=== PATIENT | female | born 1950 | race Caucasian/White ===

== ENCOUNTER 2017-08-18 18:54 | Emergency (ER) | payer MEDICARE, OTHER, SELFPAY ==
[2017-08-18 19:07] VITALS: BP 128/93; PULSE 90; RESP 14; TEMP 36.7; O2SAT 98; BMI 27.9
--- NOTE | 2017-08-18 20:18 | ED.UPPEXIN ---
HPI - Extremity Injury (Upper) <BRENDA Mendez - Last Filed: 08/18/17 22:22> General Chief Complaint: Extremity Injury, Upper Stated Complaint: LEFT ARM IS BROKEN PER PT Time Seen by Provider: 08/18/17 19:15 History of Present Illness HPI narrative: 66-year-old female here for complaint of pain into left upper arm. She was seen at [facility] earlier today and had x-rays completed which shows a humeral neck fracture. She was placed in a sling for comfort and support and was instructed to follow up with Orthopedics on Sunday. She is here to have her arm fix today as she was under the impression that we had Orthopedics here in the emergency room 30/10. She denies any other injuries. She reports that she needs better pain control than just the Motrin that she has received. She was able to ambulate into the emergency room. No head injury no loss of consciousness. Related Data Previous Rx's Medication Instructions Recorded hydrocodone-acetaminophen [[place]] 1 tab PO Q4-6H PRN #10 tab 08/18/17 Allergies Allergy/AdvReac Type Severity Reaction Status Date / Time Sulfa (Sulfonamide Allergy Intermediate Hives Verified 08/18/17 19:11 Antibiotics) Review of Systems <BRENDA Mendez - Last Filed: 08/18/17 22:22> Constitutional Denies chills, Denies fever(s), Denies lethargy and Denies weakness Eyes Denies change in vision, Denies eye discharge, Denies irritation and Denies loss of vision ENT Ears, Nose, Mouth, and Throat: Denies change in voice, Denies neck pain and Denies sore throat Cardiovascular Denies chest pain, Denies irregular heart rhythm, Denies lightheadedness, Denies palpitations, Denies dyspnea, Denies dyspnea on exertion and Denies orthopnea Respiratory Denies cough, Denies dyspnea, Denies dyspnea on exertion and Denies wheezing Gastrointestinal Gastrointestinal: Denies abdominal pain, Denies change in bowel habits, Denies diarrhea, Denies nausea and Denies vomiting Genitourinary Denies hematuria, Denies flank pain, Denies urinary incontinence and Denies urinary urgency Musculoskeletal Denies neck pain Comments: Left upper arm pain Integumentary/Breasts Denies pruritus, Denies erythema, Denies rash and Denies wounds Neurologic Denies loss of vision and Denies weakness Endocrine Denies palpitations Allergic/Immunologic Denies wheezing Exam <BRENDA Mendez - Last Filed: 08/18/17 22:22> Const General: cooperative and well developed Nutritional Appearance: well nourished Orientation: alert, awake, oriented x3 and not confused Eyes Pupils: PERRL EOM: EOM intact bilaterally Resp Effort & Inspection: normal respiratory effort, able to speak in complete sentences, no respiratory distress and no use of accessory muscles Auscultation: clear to auscultation bilaterally, no rales, no rhonchi and no wheezes Cardio Rate: regular rate Rhythm: regular rhythm Heart Sounds: no click, no gallops, no murmurs and no rubs Pulses: normal peripheral pulses GI Inspection: non-distended Palpation: soft, no hepatosplenomegaly, No guarding, No pulsatile mass and No tender Auscultation: normal bowel sounds Skin General: no rashes or lesions noted, No jaundice and No petechiae Extrem Other: Slight swelling to left proximal humeral . No ecchymosis. No deformities. Distal sensation is intact. Distal pulses are intact. Distal range of motion is intact. MDM - Extremity Injury (Upper) <BRENDA Mendez - Last Filed: 08/18/17 22:22> [facility] Narrative Medical decision making narrative: Records were obtained from [facility] which gives radiological read which indicates mildly comminuted angulated impacted humeral neck fracture. She is placed in over the shoulder premade humeral head fracture splint. [id number] Tylenol Motrin as needed for any discomfort. [place] is prescribed for any breakthrough pain. Ice to area to help with any swelling. Follow up with Orthopedics on Sunday as scheduled. For any worsening symptoms return to the emergency room. Discharge Plan Departure Patient Disposition: Home, Self-Care Clinical Impression: Closed fracture of head of right humerus Discharge Date/Time: 08/18/17 21:36 Interventions: ED Discharge Assessment Last Done: 08/18/17 21:34 Instructions: DI for Humeral Fracture Activity Restrictions/Additional Instructions: X-ray from [facility] shows to have a humeral neck fracture. You have been placed in a splint for comfort and support use as directed. [id number] Tylenol or Motrin as needed for any discomfort. Follow up with Orthopedics as scheduled. Small amount of [place] is prescribed for breakthrough pain use as directed. Ice to area 20 min at a time a few times a day over the next few days to help with any swelling. For any worsening symptoms return to the emergency room. Follow up with primary care provider. Prescriptions: New hydrocodone-acetaminophen [[place]] 5-325 mg tablet 1 tab PO Q4-6H PRN (Reason: pain) Qty: 10 RF: 0 Referrals: Therese Gilman PA-C [Primary Care Provider] - Mirza Moss MD [Physician] - <Feliciano Fierro DO - Last Filed: 08/19/17 00:34> Cosign ED Attending Howard Attestation: I was available for consultation during this patient's emergency department encounter
--- NOTE | 2017-08-18 20:21 | ED_ITS ---
HPI - Extremity Injury (Upper) <BRENDA Mendez - Last Filed: 08/18/17 22:22> General Chief Complaint: Extremity Injury, Upper Stated Complaint: LEFT ARM IS BROKEN PER PT Time Seen by Provider: 08/18/17 19:15 History of Present Illness HPI narrative: 66-year-old female here for complaint of pain into left upper arm. She was seen at [facility] earlier today and had x-rays completed which shows a humeral neck fracture. She was placed in a sling for comfort and support and was instructed to follow up with Orthopedics on Sunday. She is here to have her arm fix today as she was under the impression that we had Orthopedics here in the emergency room 30/10. She denies any other injuries. She reports that she needs better pain control than just the Motrin that she has received. She was able to ambulate into the emergency room. No head injury no loss of consciousness. Related Data Previous Rx's Medication Instructions Recorded hydrocodone-acetaminophen [[place]] 1 tab PO Q4-6H PRN #10 tab 08/18/17 Allergies Allergy/AdvReac Type Severity Reaction Status Date / Time Sulfa (Sulfonamide Allergy Intermediate Hives Verified 08/18/17 19:11 Antibiotics) Review of Systems <BRENDA Mendez - Last Filed: 08/18/17 22:22> Constitutional Denies chills, Denies fever(s), Denies lethargy and Denies weakness Eyes Denies change in vision, Denies eye discharge, Denies irritation and Denies loss of vision ENT Ears, Nose, Mouth, and Throat: Denies change in voice, Denies neck pain and Denies sore throat Cardiovascular Denies chest pain, Denies irregular heart rhythm, Denies lightheadedness, Denies palpitations, Denies dyspnea, Denies dyspnea on exertion and Denies orthopnea Respiratory Denies cough, Denies dyspnea, Denies dyspnea on exertion and Denies wheezing Gastrointestinal Gastrointestinal: Denies abdominal pain, Denies change in bowel habits, Denies diarrhea, Denies nausea and Denies vomiting Genitourinary Denies hematuria, Denies flank pain, Denies urinary incontinence and Denies urinary urgency Musculoskeletal Denies neck pain Comments: Left upper arm pain Integumentary/Breasts Denies pruritus, Denies erythema, Denies rash and Denies wounds Neurologic Denies loss of vision and Denies weakness Endocrine Denies palpitations Allergic/Immunologic Denies wheezing Exam <BRENDA Mendez - Last Filed: 08/18/17 22:22> Const General: cooperative and well developed Nutritional Appearance: well nourished Orientation: alert, awake, oriented x3 and not confused Eyes Pupils: PERRL EOM: EOM intact bilaterally Resp Effort & Inspection: normal respiratory effort, able to speak in complete sentences, no respiratory distress and no use of accessory muscles Auscultation: clear to auscultation bilaterally, no rales, no rhonchi and no wheezes Cardio Rate: regular rate Rhythm: regular rhythm Heart Sounds: no click, no gallops, no murmurs and no rubs Pulses: normal peripheral pulses GI Inspection: non-distended Palpation: soft, no hepatosplenomegaly, No guarding, No pulsatile mass and No tender Auscultation: normal bowel sounds Skin General: no rashes or lesions noted, No jaundice and No petechiae Extrem Other: Slight swelling to left proximal humeral . No ecchymosis. No deformities. Distal sensation is intact. Distal pulses are intact. Distal range of motion is intact. MDM - Extremity Injury (Upper) <BRENDA Mendez - Last Filed: 08/18/17 22:22> [facility] Narrative Medical decision making narrative: Records were obtained from [facility] which gives radiological read which indicates mildly comminuted angulated impacted humeral neck fracture. She is placed in over the shoulder premade humeral head fracture splint. [id number]-[id number] Tylenol Motrin as needed for any discomfort. [place] is prescribed for any breakthrough pain. Ice to area to help with any swelling. Follow up with Orthopedics on Sunday as scheduled. For any worsening symptoms return to the emergency room. Discharge Plan Departure Patient Disposition: Home, Self-Care Clinical Impression: Closed fracture of head of right humerus Discharge Date/Time: 08/18/17 21:36 Interventions: ED Discharge Assessment Last Done: 08/18/17 21:34 Instructions: DI for Humeral Fracture Activity Restrictions/Additional Instructions: X-ray from [facility] shows to have a humeral neck fracture. You have been placed in a splint for comfort and support use as directed. Over-the- counter Tylenol or Motrin as needed for any discomfort. Follow up with Orthopedics as scheduled. Small amount of [place] is prescribed for breakthrough pain use as directed. Ice to area 20 min at a time a few times a day over the next few days to help with any swelling. For any worsening symptoms return to the emergency room. Follow up with primary care provider. Prescriptions: New hydrocodone-acetaminophen [[place]] 5-325 mg tablet 1 tab PO Q4-6H PRN (Reason: pain) Qty: 10 RF: 0 Referrals: Therese Gilman PA-C [Primary Care Provider] - Mirza Moss MD [Physician] - <Feliciano Fierro DO - Last Filed: 08/19/17 00:34> Cosign ED Attending Howard Attestation: I was available for consultation during this patient's emergency department encounter
[2017-08-18] MEDS: HYDROCODONE/ACET 5/325 TABLET 1 TAB PO (20:48)
[2017-08-18 20:51] VITALS: BP 115/80; PULSE 84; RESP 15; O2SAT 99
[2017-08-18] MEDS: HYDROCODONE/ACET 5/325 PREPACK 1 BOTTLE MISC (21:17)
--- NOTE | 2017-08-18 21:37 | PC.NURSE ---
norco pp and norco script given to patient at discharge.
--- NOTE | 2017-08-18 21:41 | PC.NURSE ---
left humoral head cuff applied. pos cms.
== END 2017-08-18 21:36 | disposition home or self-care (01) ==
PROVIDERS: Emergency Provider Nurse Practitioner Family; Family Provider Physician Assistant; PCP Physician Assistant
DX: S42.291D Other displaced fracture of upper end of right humerus, subsequent encounter for fracture with routine healing (principal)
CPT/HCPCS: 29240; 99282

== ENCOUNTER → 2017-08-27 10:07 | Outpatient (CLI) | payer MEDICARE, OTHER, SELFPAY ==
--- NOTE | 2017-08-27 | DI.CT.S_ITS ---
PROCEDURE: CT UE LT WO CON INDICATIONS: 66 year-old female with left shoulder fracture after fall. TECHNIQUE: Noncontrast 1-1.5 mm thick sections acquired from the acromioclavicular joint to the inferior scapula, with coronal and sagittal reformatting. COMPARISON: None available. FINDINGS: Image quality: Excellent. Bones: A comminuted impacted fracture involves the left humeral neck and greater tuberosity. Coronal reformatted images demonstrate up to 1.4 cm superior impaction of the humeral shaft, as well as up to 1.2 cm displacement of the greater tuberosity fracture components. There is inferior subluxation of the humeral head with respect to the glenoid fossa, likely reflecting sequelae of intra-articular hemorrhagic products. No suspicious lytic or blastic bony lesions. There is mild acromioclavicular joint degeneration. Soft tissues: No hematoma formation. Visualized left upper lung appears clear. No axillary adenopathy by CT size criteria. IMPRESSION: Findings consistent with Neer 3-part comminuted fracture involving the left humeral neck and greater tuberosity. Dictated by: Antione London M.D. on 08/27/2017 at 13:22 Approved by: Antione London M.D. on 08/27/2017 at 13:30
== END ==
PROVIDERS: Family Provider Physician Assistant; PCP Physician Assistant; Visit Provider Orthopaedic Surgery
DX: S42.252A Displaced fracture of greater tuberosity of left humerus, initial encounter for closed fracture (principal)
CPT/HCPCS: 73200

== ENCOUNTER → 2017-09-04 10:18 | Outpatient (CLI) | payer MEDICARE, OTHER, SELFPAY ==
[2017-09-04 11:10] LABS: Add Manual Diff / Slide Review NO; Basophils Percent Auto 1.1 % (0-2); Eosinophils Percent Auto 1.4 % (2-4); Hematocrit 36.5 % (36-46); Hemoglobin 12.5 g/dL (12.0-16.0); Lymphocytes Percent Auto 31.3 % (25-40); Mean Corpuscular HGB Conc 34.2 % (30-36); Mean Corpuscular Hemoglobin 29.8 PG (26-34); Mean Corpuscular Volume 87.3 fL (80-100); Monocytes Percent Auto 5.9 % (3-14); Neutrophils Absolute Auto 4700 /uL (3000-5900); Neutrophils Percent Auto 60.3 % (50-75); Platelet Count 248 X10^3/uL (150-400); Red Blood Cell Count 4.18 X10^6/uL (4.0-5.2); White Blood Cell Count 7.8 X10^3/uL (4.5-11.0)
[2017-09-04 11:50] LABS: Carbon Dioxide 27 mmol/L (22-32); Chloride 103 mmol/L (98-107); HEMOLYSIS < 15 (0-50); Potassium 4.6 mmol/L (3.4-5.1); Sodium 140 mmol/L (137-145)
== END ==
PROVIDERS: Family Provider Physician Assistant; PCP Physician Assistant; Visit Provider Orthopaedic Surgery
DX: Z01.818 Encounter for other preprocedural examination (principal); Z01.812 Encounter for preprocedural laboratory examination
CPT/HCPCS: 36415; 80051; 85025; 93005

== ENCOUNTER 2017-09-06 12:36 | Day surgery (SDC) | payer MEDICARE, OTHER, SELFPAY ==
[2017-09-04 13:55] VITALS: BMI 31.4
[2017-09-06] VITALS (11 sets, daily range): BP systolic 94–140; BP diastolic 57–86; PULSE 75–100; RESP 8–19; TEMP 35.9–37; O2SAT 89–100; BMI 31.4
--- NOTE | 2017-09-06 | DI.RAD.S_ITS ---
PROCEDURE: XR SHOULDER LT MIN 2V INDICATIONS: ORIF LEFT SHOULDER TECHNIQUE: 6 views of the shoulder were acquired. COMPARISON: 08/18/2017. IMPRESSION: Multiple left shoulder images obtained with a mobile image intensifier demonstrating plate and screw fixation of a proximal left humeral fracture. Dictated by: Daniel Harris M.D. on 09/06/2017 at 20:40 Approved by: Daniel Harris M.D. on 09/06/2017 at 20:41
[2017-09-06] MEDS: VANCOMYCIN 1,000 MG/200 ML FROZ.PIGGY 200 MG IV (15:43)
[2017-09-06] MEDS: fentaNYL 100 MCG/2 ML INJ IV (15:44)
[2017-09-06] MEDS: LACTATED RINGERS 1,000 ML 42 ML IV (15:44)
[2017-09-06] MEDS: GENTAMICIN 200 MG in SODIUM CHLORIDE 0.9% 100 ML 105 ML IV (16:32)
--- NOTE | 2017-09-06 17:06 | SUR.PREOP ---
DR ESPINOZA INTO DISCUSS REGIONAL BLOCK WITH PATIENT.. PT CONSENTED.. MONITORS PLACED.. MEDS GIVEN.. SEE EMAR.. PT AWAKE AND CONVERSANT THROUGHOUT....VSS WITHIN PREOP LEVEL..PT TOLERATED PROCEDURE WELL
--- NOTE | 2017-09-06 17:28 | SUR.OPER ---
Beach chair with Maquet shoulder positioner. Lower body on padded OR bed. Head in foam padded head cradle, secured with straps. Non-operative arm secured <90 degrees abduction. Pillow under knees. Safety belt at thigh. Cloth tape over blanket over lower legs.
--- NOTE | 2017-09-06 17:33 | SUR.OPER ---
Patient arrived to OR with her own brace on the surgical site (left shoulder). When the surgeon removed the brace and protective stockinette, the skin under the brace was macerated, erythematous and showed signed of skin breakdown. Images were recorded of the area and the patient's brace was returned to the patient.
--- NOTE | 2017-09-06 18:23 | PM.OP.1 ---
Operative Date/Time/Diagnoses - Date of procedure: 09/06/17 Time of procedure: 17:03 Pre-op diagnosis: LEFT PROXIMAL HUMERUS FRACTURE Post-op diagnosis: same Procedure & Clinicians Procedure: OPEN REDUCTION INTERNAL FIXATION OF A LEFT PROXIMAL HUMERUS FRACTURE Same procedure as scheduled: Yes Indications: LEFT 3 PART PROXIMAL HUMERUS FRACTURE Surgeon: Mirza Moss Wildlife Science Professor: Jazzmine Johnson Anesthesia Type: General and Peripheral nerve block Operative Notes Findings: THREE-PART PROXIMAL HUMERUS FRACTURE INVOLVING THE HUMERAL NECK AND THE GREATER TUBEROSITY. NO SIGN OF ANY DISLOCATION. NO SIGN OF ANY LESSER TUBEROSITY FRACTURE. Closure Type: primary Implants & Drains: ARTHREX 4 HOLE PROXIMAL HUMERUS PLATE Applied: implant(s) Estimated Blood Loss (mL): 50 Blood products transfused: none Procedure in detail: ON DATE OF SERVICE, PATIENT WAS MET IN THE HOLDING AREA WHERE HER OPERATIVE SITE WAS SIGNED AND WITNESSED BY THE OR STAFF. THE SURGERIES ONCE AGAIN DISCUSSED WITH THE PATIENT ANY REMAINING QUESTIONS OR CONCERNS SHE HAD WERE ANSWERED FULLY. PATIENT RECEIVED HER ANTIBIOTICS PREOPERATIVELY. PATIENT WAS TAKEN BACK TO THE OPERATING THEATER AND PLACED ON THE OPERATING TABLE IN A SUPINE POSITION. GREAT CARE WAS TAKEN TO MAKE SURE THAT ALL BONY PROMINENCES WERE APPROPRIATELY PADDED. PATIENT WAS THEN PLACED INTO THE BEACH CHAIR POSITION IN THE HEAD NECK WERE APPROPRIATELY POSITIONED AND SECURED. TIMEOUT WAS PREVIOUSLY PERFORMED VERIFYING PATIENT'S NAME PROCEDURE AND OPERATIVE SITE. LEFT ARM WAS PREPPED AND DRAPED IN THE NORMAL STERILE FASHION. DELTOPECTORAL APPROACH WAS PERFORMED. TEN BLADE WAS USED TO INCISE THE SKIN AND FASCIAL TISSUE. ELECTROCAUTERY WAS USED TO ACHIEVE HEMOSTASIS. GELPI RETRACTORS WERE PLACED. CEPHALIC VEIN WAS IDENTIFIED AND DISSECTED FREE. CEPHALIC VEIN WAS TAKEN WITH THE PECTORALIS MEDIALLY AND THE DELTOID WAS RETRACTED LATERALLY. THE DELTOPECTORAL INTERVAL WAS EXPOSED GIVING US GOOD VISUALIZATION OF THE PROXIMAL HUMERUS. COWART ELEVATOR AND RONGEUR WAS USED TO REMOVE THE FASCIAL TISSUE AND FIBROUS TISSUE THAT HAD FORMED SINCE THE FRACTURE. THE FRACTURE SITE WAS COPIOUSLY IRRIGATED. PATIENT HAD A FRACTURE INVOLVING THE TUBEROSITY WELL THE NECK. SUTURES WERE PLACED INTO THE SUPRASPINATUS AROUND THE TUBEROSITY FRAGMENT IN ORDER TO REDUCE THE FRAGMENT. K-WIRE WAS PLACED INTO THE HUMERAL HEAD ALLOWING US TO CORRECT THE DISPLACEMENT AND GET BETTER OVERALL REDUCTION AND ALIGNMENT. THE PLATE WAS PROVISIONALLY SECURED TO THE HEAD WITH K-WIRES. FOUR SCREWS WERE PLACED INTO THE PLATE INTO THE HEAD. THIS THEN ALLOWED US TO USE THE PLATE TO HELP CORRECT THE OVERALL REDUCTION. C-ARM VIEWS WERE USED TO VERIFY REDUCTION AND PLATE POSITIONING. ONCE WE WERE SATISFIED WITH THE REDUCTION THE PLATE WAS SECURED TO THE SHAFT. THE REST OF THE HEAD SCREWS WERE PLACED. THE SUTURES PLACED THROUGH THE TUBEROSITY WERE THEN PLACED THROUGH THE PLATE ALLOWING US TO REDUCE THE GREATER TUBEROSITY AND PROVIDE SECURE FIXATION USING 2. FIBERWIRE. FINAL X-RAYS WERE OBTAINED. THE WOUND WAS COPIOUSLY IRRIGATED AND CLOSED IN LAYERED FASHION. PATIENT WAS EXTUBATED AND TAKEN TO THE PACU IN STABLE CONDITION. Complications: none Condition: stable Disposition: Acute Care Plan for aftercare: SLING JUST FOR COMFORT. NO RESTRICTIONS IN RANGE OF MOTION. NO LIFTING MORE THAN THE WEIGHT OF THE ARM.
--- NOTE | 2017-09-06 19:42 | SUR.PHASEI ---
Report given to pb Benton cdi. No erythema noted to armpit. Vs stable. belongings bag and green bag and splint bag taken to room. IV saline locked.
[2017-09-06] MEDS: CEFAZOLIN 2 GM/100 ML FROZ.PIGGY IV (20:17)
[2017-09-06] MEDS: MAGNESIUM HYDROXIDE 30 ML UDC PO (20:17)
[2017-09-06] MEDS: DEXTROSE 5%-0.45% NS 1,000 ML 125 ML IV (20:17)
--- NOTE | 2017-09-06 22:33 | PC.NURSE ---
ADMIT/EVENING SHIFT NOTE- PATIENT ARRIVED TO ROOM VIA BED FROM PACU. PATIENT ALERT AND ORIENTED AND ABLE TO MAKE NEEDS KNOWN TO STAFF. PATIENT PLEASENT, CALM, AND COOPERATIVE WITH CARE. ADMISSION QUESTIONS DONE, PHYSICAL ASSESSMENT COMPLETED, HOME MEDICATIONS REVIEWED. ORIENTED PATIENT TO BED AND BED CONTROLS, ROOM, BATHROOM, LIGHTS, PHONE, MENU, AND CALL [facility]/ TV REMOTE. SAFETY MEASURES IN PLACE. BED ALARM ACTIVATED. PATIENT AGREES TO CALL FOR ASSISTANCE. WILL CONTINUE TO MONITOR.
[2017-09-07] MEDS: CEFAZOLIN 2 GM/100 ML FROZ.PIGGY IV (03:27)
[2017-09-07] MEDS: DEXTROSE 5%-0.45% NS 1,000 ML 125 ML IV (04:47)
[2017-09-07 05:13] VITALS: BP 104/55; PULSE 74; RESP 16; TEMP 36.3; O2SAT 97
[2017-09-07] MEDS: LEVOTHYROXINE 125 MCG TABLET PO (06:05)
--- NOTE | 2017-09-07 06:09 | PC.NURSE ---
Pt denies pain. does not want pain meds. cms+. L. arm still edematous. IVF infusing. encouraged pt to drink more fluids.
[2017-09-07 08:21] VITALS: BP 103/67; PULSE 80; RESP 16; TEMP 36.4; O2SAT 99
--- NOTE | 2017-09-07 09:04 | PM.DS.1 ---
History of Present Illness Date Patient Seen: 09/07/17 Time Patient Seen: 09:04 Chief complaint: total shoulder arthroplasty [id number] Narrative: Elida Newton is a 66 year old female status post ORIF of left proximal humerus fracture with Dr. Moss. Discharge Providers Date of admission: 09/06/17 12:36 Primary care physician: Therese Gilman PA-C Consults: 09/06/17 18:51 Consult to Physical Therapy Evaluate & Treat Comment: Physician Instructions: Evaluate and Treat Consult to Respiratory Therapy Evaluate & Treat Comment: Physician Instructions: Evaluate and treat Discharge provider: Brittney Chacon PA-C Summary Discharge Diagnosis: status post ORIF of left proximal humerus fracture Hospital Course: Elida admitted for ORIF of left proximal humerus fracture with Dr. Moss, and she consented to procedure. Prior to the procedure it was noted that she had a bruise and skin irritation of left arm from her brace and this was documented. Hospital course was unremarkable. On postop day 1. She is feeling well and wanted to go home. She already has [place] at home for pain control. She was voiding and eating without difficulty or assistance. She worked with physical therapy. She has physical therapy set up for Sunday at [facility]. On day of discharge dressing was CDI. Exam Vital Signs (past 8 hours): Vital Signs - 8 hr 09/07/17 05:13 09/07/17 08:21 Temperature 97.3 F L 97.6 F Pulse Rate 74 80 Respiratory Rate 16 16 Blood Pressure 104/55 L 103/67 Pulse Oximetry 97 99 Pulse Oximetry 99 Oxygen Delivery Method Room Air Narrative Exam Narrative: Patient is sitting at bedside chair in no acute distress. She is alert and oriented x3. Left arm dressing is CDI. Bruising noted above her left elbow with no skin breakdown but there are signs of skin erythema and irritation. She was instructed to keep an eye on this and to let us know if she has any further skin breakdown or issues. She is aware of her restrictions. Boat Officer strength strong and equal. Pulses are symmetrical. Sensation intact to light touch throughout bilateral upper extremities. She denies any pain, nausea, vomiting, chest pain, or shortness of breath. Discharge Plan Discharge Plan Patient Disposition: Home, Self-Care Discharge comment: DC home today Discharge Med Rec/Prescriptions Prescriptions: Continue hydrocodone-acetaminophen [[place]] 5-325 mg tablet 1 tab PO Q4-6H PRN (Reason: pain) Qty: 10 RF: 0 ibuprofen 800 mg Tablet 800 mg PO TID PRN (Reason: Back Pain) RF: 0 acyclovir 400 mg Tablet 400 mg PO 5XD PRN (Reason: Back Pain) RF: 0 levothyroxine 125 mcg Capsule 125 mcg PO DAILY RF: 0 atorvastatin 40 mg Tablet 40 mg PO DAILY RF: 0 asenapine [Saphris (black decker)] 5 mg Tablet, Sublingual 1 - 2 tab SUBLINGUAL BEDTIME PRN (Reason: Insomnia) RF: 0 venlafaxine 150 mg Capsule,Extended Release 24hr 150 mg PO DAILY RF: 0 omeprazole 20 mg PO DAILY RF: 0 Follow up/Referrals: Mirza Moss MD [Physician] - (Follow-up in 10-14 days with J[facility]) Provider Discharge Instructions Activity: Sling for comfort, no restrictions in range of motion. No lifting more than weight of arm. Wound Care Report to your healthcare provider any signs of infection, such as:: chills, fever and increased pain Dressing: Keep dressing in place for 10-14 days. Other wound treatment: Please keep an eye on bruising and skin irritation of left arm from brace, and make us aware of any further skin breakdown or signs of infection. Visit Report/Discharge Packet Instructions: DI for Shoulder Fracture Discharge Data Primary Care Provider: Therese Gilman Attending Provider: Mirza Moss Admit Date/Time: 09/06/17 12:36 Quality VTE Deep Vein Thrombosis/Pulmonary Embolism Present on Admission: No
--- NOTE | 2017-09-07 09:09 | P.DS_ITS ---
History of Present Illness Date Patient Seen: 09/07/17 Time Patient Seen: 09:04 Chief complaint: total shoulder arthroplasty [id number] Narrative: Elida Newton is a 66 year old female status post ORIF of left proximal humerus fracture with Dr. Moss. Discharge Providers Date of admission: 09/06/17 12:36 Primary care physician: Therese Gilman PA-C Consults: 09/06/17 18:51 Consult to Physical Therapy Evaluate & Treat Comment: Physician Instructions: Evaluate and Treat Consult to Respiratory Therapy Evaluate & Treat Comment: Physician Instructions: Evaluate and treat Discharge provider: Brittney Chacon PA-C Summary Discharge Diagnosis: status post ORIF of left proximal humerus fracture Hospital Course: Elida admitted for ORIF of left proximal humerus fracture with Dr. Moss, and she consented to procedure. Prior to the procedure it was noted that she had a bruise and skin irritation of left arm from her brace and this was documented. Hospital course was unremarkable. On postop day 1. She is feeling well and wanted to go home. She already has [place] at home for pain control. She was voiding and eating without difficulty or assistance. She worked with physical therapy. She has physical therapy set up for Sunday at [facility]. On day of discharge dressing was CDI. Exam Vital Signs (past 8 hours): Vital Signs - 8 hr 3 09/07/17 05:13 09/07/17 08:21 Temperature 97.3 F L 97.6 F Pulse Rate 74 80 Respiratory Rate 16 16 Blood Pressure 104/55 L 103/67 Pulse Oximetry 97 99 Pulse Oximetry 99 Oxygen Delivery Method Room Air Narrative Exam Narrative: Patient is sitting at bedside chair in no acute distress. She is alert and oriented x3. Left arm dressing is CDI. Bruising noted above her left elbow with no skin breakdown but there are signs of skin erythema and irritation. She was instructed to keep an eye on this and to let us know if she has any further skin breakdown or issues. She is aware of her restrictions. High Speed Warper Tender strength strong and equal. Pulses are symmetrical. Sensation intact to light touch throughout bilateral upper extremities. She denies any pain, nausea, vomiting, chest pain, or shortness of breath. Discharge Plan Discharge Plan Patient Disposition: Home, Self-Care Discharge comment: DC home today Discharge Med Rec/Prescriptions Prescriptions: Continue hydrocodone-acetaminophen [[place]] 5-325 mg tablet 1 tab PO Q4-6H PRN (Reason: pain) Qty: 10 RF: 0 ibuprofen 800 mg Tablet 800 mg PO TID PRN (Reason: Back Pain) RF: 0 acyclovir 400 mg Tablet 400 mg PO 5XD PRN (Reason: Back Pain) RF: 0 levothyroxine 125 mcg Capsule 125 mcg PO DAILY RF: 0 atorvastatin 40 mg Tablet 40 mg PO DAILY RF: 0 asenapine [Saphris (black decker)] 5 mg Tablet, Sublingual 1 - 2 tab SUBLINGUAL BEDTIME PRN (Reason: Insomnia) RF: 0 venlafaxine 150 mg Capsule,Extended Release 24hr 150 mg PO DAILY RF: 0 omeprazole 20 mg PO DAILY RF: 0 Follow up/Referrals: Mirza Moss MD [Physician] - (Follow-up in 10-14 days with [facility]) Provider Discharge Instructions Activity: Sling for comfort, no restrictions in range of motion. No lifting more than weight of arm. Wound Care Report to your healthcare provider any signs of infection, such as:: chills, fever and increased pain Dressing: Keep dressing in place for 10-14 days. Other wound treatment: Please keep an eye on bruising and skin irritation of left arm from brace, and make us aware of any further skin breakdown or signs of infection. Visit Report/Discharge Packet Instructions: DI for Shoulder Fracture Discharge Data Primary Care Provider: Therese Gilman Attending Provider: Mirza Moss Admit Date/Time: 09/06/17 12:36 Quality VTE Deep Vein Thrombosis/Pulmonary Embolism Present on Admission: No
[2017-09-07] MEDS: VENLAFAXINE ER 75 MG CAP 150 MG PO (09:47)
[2017-09-07] MEDS: PANTOPRAZOLE 20 MG TABLET PO (09:48)
[2017-09-07] MEDS: ATORVASTATIN 20 MG TABLET 40 MG PO (09:48)
[2017-09-07] MEDS: HYDROCODONE/ACET 5/325 TABLET 2 TAB PO (09:54)
--- NOTE | 2017-09-07 10:26 | PT.IIE ---
Current Diagnoses 3-part fracture of surgical neck of left humerus, initial encounter for closed fracture (09/06/17) Other displaced fracture of upper end of left humerus, initial encounter for closed fracture (09/06/17) Surgery Performed Operation Date: 09/06/17 14:45 Actual Procedures p ORIF Proximal Humerus(Left) - Mirza Moss MD s Versus Total Shoulder Arthroplasty - Reverse(Left) - Mirza Moss MD Surgical History (Last Updated 09/04/17 @ 14:06 by Teresita Garcia RN) History of bilateral tubal ligation (Acute) History of open reduction and internal fixation (ORIF) procedure (Acute) Medical History (Last Updated 09/04/17 @ 14:06 by Teresita Garcia RN) ADHD (Acute) Depression (Acute) GERD (gastroesophageal reflux disease) (Acute) Hyperlipidemia (Acute) Hypothyroidism (Acute) Lichen sclerosus et atrophicus (Acute) Low back pain (Acute) Rosacea (Acute) Physical Therapy Inpatient Evaluation/Re-Eval M1 PT/OT-IP Prior Functional Status Start: 09/07/17 08:25 Freq: NEEDED Status: Active Protocol: Document 09/07/17 09:40 RS (Rec: 09/07/17 10:26 RS [id number]) Medical Review Prior Functional Status Medical History Reviewed Yes Communication no known deficits. Mobility and Gait ind without a device, does have a cane if needed, admits to hx of falls and fear of falling, can't do declined slopes very well. Activities of Daily Living and IADL's prior to fall/fx, pt was ind with self-care Prior Functional Level (Other details) drives Social History Household Members significant other Living Arrangements House Number of Floors (Floors) One Floor Number of Stairs To Enter/Railing? 1STE, no rail. Home Equipment Straight Cane Employment Status Retired Additional Social History Comment Her SO can physically assist as needed. M2 PT-IP Current Condition Start: 09/07/17 08:25 Freq: NEEDED Status: Active Protocol: Document 09/07/17 09:40 RS (Rec: 09/07/17 10:26 RS [id number]) Physical Therapy Current Condition Current Condition Evaluation Date 09/07/17 Treatment Diagnosis L proximal humerus ORIF Onset Date 09/06/17 Precautions Shoulder Precautions Sling M3 PT-IP Subjective Start: 09/07/17 08:25 Freq: NEEDED Status: Active Protocol: Document 09/07/17 09:40 RS (Rec: 09/07/17 10:26 RS [id number]) Subjective Physical Therapy Visit Type Type Initial Evaluation Visit Start Time 08:29 Visit Stop Time 09:40 Total Visit Minutes 71 Physical Therapy Visit Comments Patient Comments Pt reports doing well, doesn't feel much pain at the surgical site, most pain is from skin irritation from previous brace. Patient/Caregiver Goals go home, get started with OPPT Therapy Pain Assessment Pain When Pain Assessed At Rest Pain Present Pain Present Pain Reported Location Lt Armpit Intensity 2 Scale Used Numeric (1 - 10) Description Aching Tender Pain Management Techniques Re-positioning M4 PT-IP Mobility and Gait Start: 09/07/17 08:25 Freq: NEEDED Status: Active Protocol: Document 09/07/17 09:40 RS (Rec: 09/07/17 10:26 RS [id number]) PT-Transfer Assessment Sit to and From Stand Sit to and from Stand Independent Equipment Transfer Assistive Device None Transfers Transfer Destination Chair Transfer Technique Stand Step Pivot Transfer Ability Level of Assist Independent Comments Mobility Comments Pt is SBA in the hospital to assist with IV pole but is otherwise independent. Gait Assessment Gait Gait Assistance Required: Independent Distance (Feet) (feet) 500 Assistive Devices Assistive Device None Gait Deviations General Gait Pattern Within Normal Limits Comments Gait Comments Pt did have sling donned while walking. Stair Climbing Assessment Evaluation Level of Assist On Stairs Standby Assistance Devices Stair Climbing Assistive Devices None Technique/Endurance Stair Climbing Direction Ascend and Descend Stair Climbing Technique Step to Step Number of Steps Climbed 1 Query Text: Comments Stair Climbing Comments normal, no impairments noted. PT-Balance Assessment Sitting Balance and Reactions Static Sitting Balance Ability Normal Dynamic Sitting Balance Ability Normal Standing Balance and Reactions Static Standing Balance Ability Normal Dynamic Standing Balance Ability Good Device Used none M5 PT-IP Objective Assessments Start: 09/07/17 08:25 Freq: NEEDED Status: Active Protocol: Document 09/07/17 09:40 RS (Rec: 09/07/17 10:26 RS [id number]) Orientation Orientation/Cognition Level of Alertness Alert Orientation Name Age Birthday Month Date Year Day of Week Place Situation Language Function Ability No Deficits Noted Safety Awareness Understands Safety Issues Memory Description No Deficits Noted Gross Range of Motion Upper Extremity ROM Assessment Left Impaired Impairments passive shoulder elevation to approximately 70 degrees, active to approximately 15 degrees elbow AROM approximately 10-50 wrist full within available ROM (limited by previous wrist injury) supination to approximately 60 hand WFL RUE WFL Lower Extremity ROM Assessment Within Functional Limits Strength Upper Extremity Strength Assessment Left Impaired Lower Extremity Strength Assessment Within Functional Limits Comments Strength Comments RUE WFL, LUE significantly impaired, minimal active motion at the shoulder, formal testing not performed on LUE. Sensation Assessment Sensation Light Touch Intact M6 PT-IP Treatment Start: 09/07/17 08:25 Freq: NEEDED Status: Active Protocol: Document 09/07/17 09:40 RS (Rec: 09/07/17 10:26 [id number]) Physical Therapy Treatment Exercises Exercises Elbow Flexion/Extension Wrist ROM Hand ROM Education Education Provided Precautions Weight Bearing Status Safety Brace Education [place] Patient Equipment Issued Equipment Type and Company UE sling already on patient, provided through [employer] PT-IP Assessment and Plan Start: 09/07/17 08:25 Freq: NEEDED Status: Active Protocol: Document 09/07/17 09:40 RS (Rec: 09/07/17 10:26 [id number]) PT Summary Assessment and Plan Potential Rehabilitation Potential Excellent Status of Condition at Evaluation Stable Summary Impairments ROM Strength Progress Towards Goals Safe For Discharge Assessment Summary Pt presents with significant limitations in ROM and strength of the LUE, this is expected after complete immobilization for 3 weeks prior to an ORIF. Pt also with impaired skin integrity in the L upper arm where the previous brace was worn and never removed x 3 weeks. Pt is indpendent with overall mobility and will require assistance in some form for most ADLs. Pt's SO has been assisting for the past 3 weeks and can continue to do so. Pt is safe to discharge home when medically ready and will be starting with OPPT on Sunday. No other acute goals/ needs, PT will sign off. Frequency of Treatment Frequency Of Treatment Once a Day Treatment Plan Physical Therapy Treatment Plan Bed Mobility Training Transfer Training Gait Training Therapeutic Exercise Post Op Education Discharge Planning Other Recommendations and Next Treatment no formalized caregiver Focus training required Recommendations To Nursing Amount of Assist Needed Standby Assistance 1 Person Assist Discharge Recommendations PT Discharge Recommendations Home with Assistance Other Discharge Recommendations Perform provided hand, wrist, elbow exercises that were provided during PT session until pt begins OPPT. Provider Visit Care Team Role Provider Type Therese Gilman PA-C Family Provider Advanced Practioner Clinician Primary Care Provider Specialty: Medical Mirza Moss MD Admit Provider Physician Attending Provider Specialty: Orthopedic Surgery
[2017-09-07] MEDS: hydrOXYzine pamoate 25 MG CAPSULE 50 MG PO (12:18)
== END 2017-09-07 12:23 | disposition home or self-care (01) ==
LOC: AC 09-07 10:43 → OR 09-07 10:54 → AC 09-07 11:04
PROVIDERS: Family Provider Physician Assistant; PCP Physician Assistant; Visit Provider Orthopaedic Surgery
PROC: (CPT 23615; principal; 2017-09-06 14:45)
PROC: (CPT 23472; 2017-09-06 14:45)
DX: S42.292A Other displaced fracture of upper end of left humerus, initial encounter for closed fracture (principal); S42.232A 3-part fracture of surgical neck of left humerus, initial encounter for closed fracture; Z98.890 Other specified postprocedural states; E03.9 Hypothyroidism, unspecified; E66.9 Obesity, unspecified; Z87.891 Personal history of nicotine dependence; W19.XXXA Unspecified fall, initial encounter
CPT/HCPCS: 23615; 36415; 64450; 73030; 76000; 80051; 85025; 93005; 97110; 97116; 97161; 97530; G0379; J0690; J1100; J2405; J2704; J3010; J3370

== ENCOUNTER 2018-12-03 11:27 | Day surgery (SDC) | payer MEDICARE, OTHER, SELFPAY ==
[2017-09-06 20:06] VITALS: BMI 31.4
[2018-12-03 12:00] VITALS: BP 117/78; PULSE 72; RESP 20; TEMP 36.4; O2SAT 100; BMI 27.4
[2018-12-03] MEDS: PROPARACAINE 0.5% OPHTH SOL 2 DROPS EYE-OP (12:00)
[2018-12-03] MEDS: CATARACT EYE COMPOUND (10 DROPS/SYRINGE) 3 DROPS EYE-OP ×3 (12:10→12:20)
--- NOTE | 2018-12-03 12:57 | PM.PREOP ---
Pre-operative Note Interval Note History & Physical reviewed/Exam performed by Physician: No Changes to H&P: No
--- NOTE | 2018-12-03 12:57 | PM.OP.1 ---
Operative Date/Time/Diagnoses Pre-op diagnosis: Nuclear Cataract Left eye Post-op diagnosis: same Procedure & Clinicians Surgeon: Sonny Best Anesthesia Type: MAC +/- and Sedation Operative Notes Procedure in detail: Patient brought to the operating suite. Tetracaine drops placed in the left eye. Patient was prepped and draped in sterile manner. Wire lid speculum was placed in the eye. Betadine drops were placed on the eye. This was irrigated. Lidocaine jelly was placed on the eye. A paracentesis port was created with a side-port blade. 0.1 mL 1% preservative free lidocaine was injected into the anterior chamber. The anterior chamber was deepened with viscoelastic. 2.6 mm keratome was used to create a temporal clear corneal incision. Cystotome and Utrata forceps were used to create continuous tear capsulorrhexis. Balanced salt solution was used to hydro dissect the nucleus. The phacoemulsification handpiece was inserted and the nucleus was removed using the stop and chop technique. The irrigation aspiration handpiece was inserted and the remaining cortex was removed. Anterior chamber was deepened with viscoelastic. An James ZCB00 intraocular lens with a power of 19.5 was injected into the capsular bag. Irrigation aspiration handpiece was inserted and the remaining viscoelastic was removed. Incision was hydrated with balanced salt solution and found to be leak free with pressure with Weck-Diamante sponges. 0.1 mL Vigamox injected anterior chamber. 0.3 mL Kenalog 10 mg was injected subconjunctivally. Lid speculum was removed. The patient left the operating room in excellent condition. Complications: none Condition: stable Disposition: same day surgery
[2018-12-03] MEDS: MOXIFLOXACIN INJ 5 MG/ML VIAL EYE-OP (13:16)
[2018-12-03] MEDS: TRIAMCINOLONE 50 MG/5 ML VIAL INJ (13:16)
[2018-12-03] MEDS: PHENYLEPHRINE/LIDOCAINE VIAL (OR) 0.2 ML EYE-OP (13:16)
[2018-12-03] MEDS: BALANCED SALT IRRIG SOLN NO.2 500 ML, EPINEPHrine 1 MG IRR (13:17)
[2018-12-03] MEDS: CHONDROIDTIN/SOD HYALURONATE 1.05 ML SYRINGE INTRAOCULA (13:17)
[2018-12-03] MEDS: LIDOCAINE JELLY 2% 5 ML 1 APPLIC TOP (13:17)
[2018-12-03] MEDS: TETRACAINE 0.5% OPHTH DROPS 4 ML 2 DROPS EYE-OP (13:17)
[2018-12-03 13:32] VITALS: BP 113/77; PULSE 73; RESP 14; TEMP 36.2; O2SAT 99
== END 2018-12-03 13:45 | disposition home or self-care (01) ==
LOC: OR 11:30
PROVIDERS: Visit Provider Ophthalmology
PROC: (CPT 66984; principal; 2018-12-03 13:15)
DX: H25.12 Age-related nuclear cataract, left eye (principal); E78.00 Pure hypercholesterolemia, unspecified
CPT/HCPCS: 66984; J0171; J2250; J3301

== ENCOUNTER 2018-12-17 09:28 | Day surgery (SDC) | payer MEDICARE, OTHER, SELFPAY ==
[2017-09-06 20:06] VITALS: BMI 31.4
[2018-12-17] VITALS (7 sets, daily range): BP systolic 84–102; BP diastolic 54–71; PULSE 59–72; RESP 11–22; TEMP 36.1–36.4; O2SAT 97–100; BMI 26.1
[2018-12-17] MEDS: PROPARACAINE 0.5% OPHTH SOL 2 DROPS EYE-OP (10:37)
[2018-12-17] MEDS: CATARACT EYE COMPOUND (10 DROPS/SYRINGE) 3 DROPS EYE-OP (10:42)
--- NOTE | 2018-12-17 11:32 | PM.PREOP ---
Pre-operative Note Interval Note History & Physical reviewed/Exam performed by Physician: No Changes to H&P: No
--- NOTE | 2018-12-17 11:32 | PM.OP.1 ---
Operative Date/Time/Diagnoses Pre-op diagnosis: Nuclear cataract right eye Procedure & Clinicians Procedure: Cataract Surgery Same procedure as scheduled: Yes Surgeon: Sonny Best Anesthesia Type: MAC +/- and Sedation Operative Notes Procedure in detail: Patient brought to the operating suite. Tetracaine drops placed in the right eye. Patient was prepped and draped in sterile manner. Wire lid speculum was placed in the eye. Betadine drops were placed on the eye. This was irrigated. Lidocaine jelly was placed on the eye. A paracentesis port was created with a side-port blade. 0.1 mL 1% preservative free lidocaine was injected into the anterior chamber. The anterior chamber was deepened with viscoelastic. 2.6 mm keratome was used to create a temporal clear corneal incision. Cystotome and Utrata forceps were used to create continuous tear capsulorrhexis. Balanced salt solution was used to hydro dissect the nucleus. The phacoemulsification handpiece was inserted and the nucleus was removed using the stop and chop technique. The irrigation aspiration handpiece was inserted and the remaining cortex was removed. Anterior chamber was deepened with viscoelastic. An James ZCB00 intraocular lens with a power of 20.0 was injected into the capsular bag. Irrigation aspiration handpiece was inserted and the remaining viscoelastic was removed. Incision was hydrated with balanced salt solution and found to be leak free with pressure with Weck-Diamante sponges. 0.1 mL Vigamox injected anterior chamber. 0.3 mL Kenalog 10 mg was injected subconjunctivally. Lid speculum was removed. The patient left the operating room in excellent condition. Complications: none Post-operative Condition: stable Disposition: same day surgery
[2018-12-17] MEDS: PHENYLEPHRINE/LIDOCAINE VIAL (OR) 0.2 ML EYE-OP (11:49)
[2018-12-17] MEDS: TETRACAINE 0.5% OPHTH DROPS 4 ML 2 DROPS EYE-OP (11:50)
[2018-12-17] MEDS: LIDOCAINE JELLY 2% 5 ML 1 APPLIC TOP (11:50)
[2018-12-17] MEDS: TRIAMCINOLONE 50 MG/5 ML VIAL INJ (11:50)
[2018-12-17] MEDS: MOXIFLOXACIN INJ 5 MG/ML VIAL EYE-OP (11:50)
[2018-12-17] MEDS: BALANCED SALT IRRIG SOLN NO.2 500 ML, EPINEPHrine 1 MG IRR (11:50)
[2018-12-17] MEDS: CHONDROIDTIN/SOD HYALURONATE 1.05 ML SYRINGE INTRAOCULA (11:50)
[2018-12-17] MEDS: LACTATED RINGERS 1,000 ML 42 ML IV (12:20)
== END 2018-12-17 13:20 | disposition home or self-care (01) ==
LOC: OR 09:30
PROVIDERS: Visit Provider Ophthalmology
PROC: (CPT 66984; principal; 2018-12-17 11:15)
DX: H25.11 Age-related nuclear cataract, right eye (principal)
CPT/HCPCS: 66984; J0171; J2250; J3010; J3301

== ENCOUNTER 2023-02-04 15:46 | Emergency (ER) | payer MEDICARE, OTHER, SELFPAY ==
[2017-09-06 20:06] VITALS: BMI 31.4
[2023-02-04 15:57] VITALS: BP 129/75; PULSE 83; RESP 18; TEMP 36.9; O2SAT 99; BMI 58.7
--- NOTE | 2023-02-04 16:04 | DI.RAD.S_ITS ---
PROCEDURE: XR KNEE LT 3V INDICATIONS: Left knee pain and swelling TECHNIQUE: 3 views of the knee were acquired. COMPARISON: [facility], , KNEE 3V LEFT, 09/26/2007, 15:43. FINDINGS: Bones: No fractures or dislocations. No suspicious bony lesions. 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 Soft tissues: No joint effusion. No suspicious soft tissue calcifications. IMPRESSION: No acute osseous findings. [id number] osteoarthrosis. Dictated by: German Carvalho M.D. on 02/04/2023 at 16:08 Approved by: German Carvalho M.D. on 02/04/2023 at 16:09
[2023-02-04 17:09] VITALS: PULSE 80
--- NOTE | 2023-02-04 17:17 | ED_ITS ---
HPI - Extremity Injury (Lower) <Kellee Cerda PA-C - Last Filed: 02/04/23 19:45> General Chief Complaint: Extremity Injury, Lower Stated Complaint: l/ KNEE INJURY Time Seen by Provider: 02/04/23 17:01 Source: patient Mode of arrival: Wheelchair History of Present Illness HPI Narrative: Patient is a 72-year-old female with chronic conditions of reflux, hypothyroidism, HLD, hypothyroidism presenting for evaluation of left knee pain onset after gardening today. She reports that after straightening her left leg and pulling on a hoe while gardening she felt pain across her anterior left knee just below her patella. She states that she has been mostly nonweightbearing on it since that incident. She denies previous surgery to her left knee and reports known presence of osteoarthritis. She denies any left hip pain or left ankle pain. She states that she was able to put some weight on it when she went to the bathroom while waiting to be seen. 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 She denies warmth, numbness or tingling down her left lower leg. Related Data Home Medications Medication Instructions Recorded Confirmed acyclovir 400 mg tablet 400 mg PO 5XD PRN Back Pain 09/04/17 12/17/18 asenapine maleate 5 mg sublingual 1 - 2 tab sublingual BEDTIME PRN 09/04/17 12/17/18 tablet (Saphris (black decker)) Insomnia atorvastatin 40 mg tablet 40 mg PO DAILY 09/04/17 12/17/18 ibuprofen 800 mg tablet 800 mg PO TID PRN Back Pain 09/04/17 12/17/18 levothyroxine 125 mcg capsule 125 mcg PO DAILY 09/04/17 12/17/18 omeprazole 20 mg capsule,delayed 20 mg PO DAILY ##0 09/06/17 12/17/18 release dextroamphetamine sulfate 20 mg 20 mg PO BID 12/03/18 12/17/18 tablet levomefolate 15 mg-algal oil 1 cap PO DAILY 12/03/18 12/17/18 90.314 mg capsule (Deplin (algal oil)) desvenlafaxine 50 mg 50 mg PO DAILY 12/17/18 12/17/18 tablet,extended release 24 hr Allergies Allergy/AdvReac Type Severity Reaction Status Date / Time Sulfa (Sulfonamide Allergy Intermediate Hives Verified 02/04/23 15:57 Antibiotics) topiramate AdvReac Severe unable to Verified 02/04/23 15:57 walk Review of Systems <Kellee Cerda PA-C - Last Filed: 02/04/23 19:45> Review of Systems Narrative: See HPI Patient History <Kellee Cerda PA-C - Last Filed: 02/04/23 19:45> Medical History Low back pain Lichen sclerosus et atrophicus Hypothyroidism GERD (gastroesophageal reflux disease) ADHD Depression Hyperlipidemia Rosacea Surgical History History of open reduction and internal fixation (ORIF) procedure History of bilateral tubal ligation Social History household members: significant other Smoking Status: Former smoker alcohol intake: current Smoking Status: Former smoker alcohol intake frequency: a few times a month Substance Use Type: does not use Exam <Kellee Cerda PA-C - Last Filed: 02/04/23 19:45> Initial Vital Signs Initial Vital Signs: Vital Signs Temperature 98.5 F 02/04/23 15:57 Pulse Rate 83 02/04/23 15:57 Respiratory Rate 18 02/04/23 15:57 Blood Pressure 129/75 02/04/23 15:57 Pulse Oximetry 99 02/04/23 15:57 Oxygen Delivery Method Room Air 02/04/23 15:57 GENERAL: 72 year old patient appears stated age. Well-developed patient, in no acute distress. HEAD: Atraumatic. Normocephalic. EYES: Pupils equal round No scleral icterus. No injection or drainage. NECK: Trachea midline, supple RESPIRATORY: Speaking comfortably normal tone of voice without any increased work of breathing. EXTREMITIES: No joint line tenderness, no bruising or erythema over left knee, no edema of left lower extremity, no left hip pain, patient demonstrates 5/5 left knee flexion and somewhat decreased left knee extension secondary to pain over left infrapatellar area, patient can not tolerate Zena's, but has no pain with valgus or varus stress test nor Mariaa's nor posterior drawer. She does exhibit some tenderness over the anterior infrapatellar location with anterior drawer. Left posterior tibialis 2+ NEURO: AOx3. SKIN: No rash or erythema of visible areas <Beulah Patino DO - Last Filed: 02/04/23 19:50> Initial Vital Signs Initial Vital Signs: Vital Signs Temperature 98.5 F 02/04/23 15:57 Pulse Rate 83 02/04/23 15:57 Respiratory Rate 18 02/04/23 15:57 Blood Pressure 129/75 02/04/23 15:57 Pulse Oximetry 99 02/04/23 15:57 Oxygen Delivery Method Room Air 02/04/23 15:57 Course <Kellee Cerda PA-C - Last Filed: 02/04/23 19:45> Orders Ordered: ED Orders 02/04/23 16:04 XR knee LT 3V Stat Vital Signs Vital signs: Vital Signs - 8 hr 02/04/23 15:57 02/04/23 17:09 02/04/23 17:54 Temperature 98.5 F 98.4 F Pulse Rate 83 82 Pulse Rate [Left Posterior Tibial] 80 Respiratory Rate 18 16 Blood Pressure 129/75 128/67 Pulse Oximetry 99 97 Oxygen Delivery Method Room Air Room Air <Beulah Patino DO - Last Filed: 02/04/23 19:50> Orders Ordered: ED Orders 02/04/23 16:04 XR knee LT 3V Stat Vital Signs Vital signs: Vital Signs - 8 hr 02/04/23 15:57 02/04/23 17:09 02/04/23 17:54 Temperature 98.5 F 98.4 F Pulse Rate 83 82 Pulse Rate [Left Posterior Tibial] 80 Respiratory Rate 18 16 Blood Pressure 129/75 128/67 Pulse Oximetry 99 97 Oxygen Delivery Method Room Air Room Air MDM - Extremity Injury (Lower) <Kellee Cerda PA-C - Last Filed: 02/04/23 19:45> Imaging Data XR Left knee: Radiologist's Impression: PROCEDURE: XR KNEE LT 3V INDICATIONS: Left knee pain and swelling TECHNIQUE: 3 views of the knee were acquired. COMPARISON: [facility], , KNEE 3V LEFT, 09/26/2007, 15:43. FINDINGS: Bones: No fractures or dislocations. No suspicious bony lesions. 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 Soft tissues: No joint effusion. No suspicious soft tissue calcifications. IMPRESSION: No acute osseous findings. [id number] osteoarthrosis. Dictated by: German Carvalho M.D. on 02/04/2023 at 16:08 Approved by: German Carvalho M.D. on 02/04/2023 at 16:09 [facility] Narrative Medical decision making narrative: Patient is a 72-year-old female presenting for evaluation of left knee pain since 1 day. History and physical exam are consistent with likely left knee sprain. X-ray of left knee did not show any fracture dislocation, but did show some osteoarthrosis. She is agreeable to receive a knee brace along with a walker. I recommend she follow up with Orthopedics for further evaluation. In the meantime, recommend that she elevate her left knee, use compression as well as ice and NSAIDs to help control her pain. Advise her to proceed with activity as tolerated, and try to minimize weight-bearing. Multiple etiologies for patient's symptoms considered including, but not limited to: Osteoarthritis, left knee sprain/strain, septic joint Imaging reviewed: X-ray left knee, no fractures or dislocations noted. Patient's symptoms improved over duration of stay with above-stated therapies. Findings and discharge diagnosis discussed with patient/family followed by verbalization of understanding Return precautions discussed with patient/family whom verbalize understanding of diagnosis and plan. Discharge Plan Departure Patient Disposition: Home Clinical Impression: Left knee sprain Qualifiers: Encounter type: initial encounter Involved ligament of knee: unspecified ligament Qualified Code(s): S83.92XA - Sprain of unspecified site of left knee, initial encounter Instructions: DI for Knee Sprain Activity Restrictions/Additional Instructions: Thank you for coming in today for your care. Based upon your history and physical exam, you most likely have a sprain of your left knee. Recommend additional support of your left knee with a knee brace and reduced weight- bearing, in addition to a walker. I recommend that you keep left leg elevated while at rest and apply ice and NSAIDs. We have provided you with a knee brace today. Please take ibuprofen for your pain at home today as we discussed. I recommend you continue follow up with Orthopedic for further evaluation of your acute onset of left knee pain. X-ray of your left knee did not show any evidence of fracture or dislocation. It did show some osteoarthrosis. The number for [facility] is [phone]. Prescriptions: No Action desvenlafaxine 50 mg Tablet Extended Release 24 Hr 50 mg PO DAILY Rx Instructions: unkown dose ibuprofen 800 mg Tablet 800 mg PO TID PRN (Reason: Back Pain) acyclovir 400 mg Tablet 400 mg PO 5XD PRN (Reason: Back Pain) levothyroxine 125 mcg Capsule 125 mcg PO DAILY Rx Instructions: takes nature throid atorvastatin 40 mg Tablet 40 mg PO DAILY Saphris (black decker) 5 mg Tablet, Sublingual 1 - 2 tab SUBLINGUAL BEDTIME PRN (Reason: Insomnia) omeprazole 20 mg Capsule,Delayed Release(Dr/Ec) 20 mg PO DAILY Qty: 0 levomefolate-algal oil [Deplin (algal oil)] 15-90.314 mg Capsule 1 cap PO DAILY Rx Instructions: unknown dose dextroamphetamine sulfate 20 mg Tablet 20 mg PO BID Referrals: German Prieto MD [Primary Care Provider] - Stand Alone Forms: Patient Portal/API ED Sign-out <Beulah Patino DO - Last Filed: 02/04/23 19:50> Cosign ED Attending Cosmadelineature Attestation: I was immediately available in the department for consultation. Documentation has been reviewed.
[2023-02-04 17:54] VITALS: BP 128/67; PULSE 82; RESP 16; TEMP 36.9; O2SAT 97
== END 2023-02-04 17:58 | disposition home or self-care (01) ==
PROVIDERS: Emergency Provider Physician Assistant; PCP Internal Medicine
DX: S83.92XA Sprain of unspecified site of left knee, initial encounter (principal); X50.9XXA Other and unspecified overexertion or strenuous movements or postures, initial encounter
CPT/HCPCS: 29530; 73562; 99282